=== PATIENT | male | born 1965 | race Caucasian/White ===

== ENCOUNTER 2018-05-24 00:38 | Observation (INO) ==
[2018-05-24] MEDS ORDERED: ASPIRIN CHEW 81 MG TABLET PO STA (01:02)
[2018-05-24] MEDS ORDERED: FAMOTIDINE 20 MG/2 ML VIAL IV STA (01:02)
[2018-05-24] MEDS ORDERED: NITROGLYCERIN SL 0.4 MG TABLET SL STA (01:02)
[2018-05-24 01:21] LABS: Mean Corpuscular Volume 82.1 FL (87-102); Red Cell Distribution Width 11.8 % (9.3-17.3)
[2018-05-24 01:39] LABS: Basophils # 0.1 10*3/uL (0.0-0.2); Basophils % 0.7 % (0.0-0.8); Eosinophils # 0.3 10*3/uL (0.0-0.87); Hematocrit 45.9 VOL% (42.0-52.0); Hemoglobin 16.9 GM/DL (14.0-18.0); Immature Granulocytes % 0.3 %; Immature Granulocytes Absolute 0.03 #; Lymphocytes # 2.7 10*3/uL (1.4-4.0); Lymphocytes % 26.3 % (21.2-54.2); Mean Corpuscular HGB Conc 36.8 GM/DL (32-36); Mean Corpuscular Hemoglobin 30 PG (27-34); Mean Platelet Volume 10.6 FL (9.6-12.0); Monocytes % 9.8 % (1.7-12.7); Neutrophils # 6.1 10*3/uL (1.4-7.4); Neutrophils % 59.9 % (38.7-73.9); Platelet Count 197 T/CUMM (130-400); Red Blood Count 5.59 MC/CUMM (3.8-5.5); White Blood Count 10.1 T/CUMM (4-12)
[2018-05-24 01:51] LABS: Bilirubin,Total 1.3 MG/DL (0.2-1.0); Calcium 9.2 MG/DL (8.5-10.1); Osmolality,Calculated 281.4 MOS/KG (273-304); Potassium 3.1 MMOL/L (3.5-5.1); Total Protein 7.5 G/DL (6.4-8.3)
[2018-05-24] MEDS ORDERED: MECLIZINE 25 MG TABLET PO STA (02:07)
[2018-05-24] MEDS ORDERED: ACETAMINOPHEN 325 MG TABLET PO PRN (03:34)
[2018-05-24] MEDS ORDERED: ONDANSETRON 4 MG/2 ML VIAL IV PRN ×2 (03:34→03:59)
[2018-05-24] MEDS ORDERED: MORPHINE 4 MG/1 ML VIAL IV PRN (03:59)
[2018-05-24] MEDS ORDERED: MAGNESIUM SULF RIDER 2 GM in PREMIX 1 EACH IV PRN (03:59)
[2018-05-24] MEDS ORDERED: POTASSIUM CHLORIDE 20 MEQ TABLET PO PRN ×2 (03:59)
[2018-05-24] MEDS ORDERED: INSULIN LISPRO 100 UNIT/ML SUBCUT ONE (03:59)
[2018-05-24] MEDS ORDERED: NITROGLYCERIN SL 0.4 MG TABLET SL PRN (03:59)
[2018-05-24] MEDS ORDERED: MAGNESIUM SULF RIDER 4 GM in PREMIX 1 EACH IV PRN (03:59)
[2018-05-24] MEDS: SODIUM CHLORIDE 0.9% 1,000 ML IV SCH ×2 (04:52→13:54)
[2018-05-24] MEDS: INSULIN LISPRO 100 UNIT/ML SUBCUT SCH ×3 (05:41→16:51)
[2018-05-24 06:58] LABS: Albumin 3.6 G/DL (3.4-5.0); Bilirubin,Total 1.5 MG/DL (0.2-1.0); Calcium 8.6 MG/DL (8.5-10.1); Osmolality,Calculated 276.5 MOS/KG (273-304); Potassium 3.3 MMOL/L (3.5-5.1); Total Protein 6.9 G/DL (6.4-8.3)
[2018-05-24 07:02] LABS: Risk Ratio 3.64; Thyroid Stimulating Hormone 6.05 uIU/ml (0.358-3.74); VLDL CHOLESTEROL 26.8 MG/DL
[2018-05-24 07:12] LABS: Basophils # 0.1 10*3/uL (0.0-0.2); Basophils % 0.8 % (0.0-0.8); Eosinophils # 0.4 10*3/uL (0.0-0.87); Eosinophils % 3.7 % (0.00-10.9); Hematocrit 43.7 VOL% (42.0-52.0); Hemoglobin 15.6 GM/DL (14.0-18.0); Immature Granulocytes % 0.3 %; Immature Granulocytes Absolute 0.03 #; Lymphocytes # 3.3 10*3/uL (1.4-4.0); Lymphocytes % 33.5 % (21.2-54.2); Mean Corpuscular HGB Conc 35.7 GM/DL (32-36); Mean Corpuscular Hemoglobin 30 PG (27-34); Mean Corpuscular Volume 83.4 FL (87-102); Mean Platelet Volume 10.6 FL (9.6-12.0); Monocytes # 0.9 10*3/uL (0.11-0.8); Monocytes % 9.1 % (1.7-12.7); Neutrophils # 5.1 10*3/uL (1.4-7.4); Neutrophils % 52.6 % (38.7-73.9); Platelet Count 173 T/CUMM (130-400); Red Blood Count 5.24 MC/CUMM (3.8-5.5); Red Cell Distribution Width 11.8 % (9.3-17.3); White Blood Count 9.8 T/CUMM (4-12)
[2018-05-24] MEDS ORDERED: ENOXAPARIN 40 MG/0.4 ML SYRINGE ONE (07:27)
[2018-05-24] MEDS ORDERED: PANTOPRAZOLE 40 MG TABLET PO SCH ×2 (09:00)
[2018-05-24] MEDS ORDERED: DOCUSATE SODIUM 100 MG CAPSULE PO SCH (09:00)
[2018-05-24] MEDS ORDERED: ASPIRIN EC 81 MG TABLET PO SCH (09:00)
[2018-05-24] MEDS ORDERED: ENOXAPARIN 40 MG/0.4 ML SYRINGE SUBCUT SCH (09:00)
[2018-05-24] MEDS ORDERED: ASPIRIN EC 325 MG TABLET PO SCH (09:00)
[2018-05-24 16:51] VITALS: BP 103/60
[2018-05-24] MEDS ORDERED: ROSUVASTATIN 20 MG TABLET PO SCH (21:00)
== END 2018-05-24 18:20 | disposition home or self-care (01) ==
LOC: N.ED 00:38 → N.EDINP 00:38 → N.TELEN 03:53

== ENCOUNTER 2018-10-26 23:58 | Observation (INO) ==
[2018-10-27] MEDS ORDERED: ONDANSETRON 4 MG/2 ML VIAL IV STA (00:26)
[2018-10-27 00:45] LABS: Basophils # 0.1 10*3/uL (0.0-0.2); Basophils % 0.9 % (0.0-0.8); Eosinophils # 0.7 10*3/uL (0.0-0.87); Eosinophils % 7.5 % (0.00-10.9); Hematocrit 46.7 VOL% (42.0-52.0); Immature Granulocytes % 0.8 %; Immature Granulocytes Absolute 0.07 #; Mean Corpuscular HGB Conc 34.3 GM/DL (32-36); Mean Corpuscular Hemoglobin 29 PG (27-34); Mean Corpuscular Volume 84.9 FL (87-102); Mean Platelet Volume 10.7 FL (9.6-12.0); Monocytes # 0.7 10*3/uL (0.11-0.8); Monocytes % 8.2 % (1.7-12.7); Neutrophils # 4.3 10*3/uL (1.4-7.4); Neutrophils % 48.6 % (38.7-73.9); Platelet Count 193 T/CUMM (130-400); Red Cell Distribution Width 12.4 % (9.3-17.3); White Blood Count 8.8 T/CUMM (4-12)
[2018-10-27 00:48] LABS: PT Patient Result 10.9 SECS; Partial Thromboplastin Time 27.6 SECS (0-40)
[2018-10-27 00:58] LABS: Calcium 8.8 MG/DL (8.5-10.1); Osmolality,Calculated 284.4 MOS/KG (273-304); Potassium 3.9 MMOL/L (3.5-5.1); Total Protein 7.4 G/DL (6.4-8.3)
[2018-10-27 01:00] LABS: Troponin I < 0.015 NG/ML (0.00-0.045)
[2018-10-27] MEDS ORDERED: BISACODYL 5 MG TABLET PO PRN (01:20)
[2018-10-27] MEDS ORDERED: ONDANSETRON 4 MG/2 ML VIAL IV PRN (01:20)
[2018-10-27] MEDS ORDERED: NICOTINE 21 MG/24 HR PATCH TRANSDERM PRN (01:20)
[2018-10-27] MEDS ORDERED: diphenhydrAMINE CAP 25 MG CAPSULE PO PRN (01:20)
[2018-10-27] MEDS ORDERED: ACETAMINOPHEN 325 MG TABLET PO PRN (01:20)
[2018-10-27 01:22] LABS: Barbiturates Screen,Urine Negative (Negative); Benzodiazepines Screen,Urine Negative (Negative); Cannabinoid Screen,Urine Positive (Negative); Opiate Screen,Urine Negative (Negative); Phencyclidine Screen,Urine Negative (Negative)
[2018-10-27 01:23] LABS: Apearance,Urine CLEAR (Clear); Bilirubin,Urine Negative (Negative); Blood, Urine Negative (Negative); Glucose,Urine (UA) 50 mg/dL (Negative); Ketones,Urine Negative (Negative); Mucus,Urine Occasional /LPF (Occasional); Nitrite,Urine Negative (Negative); Protein,Urine Negative; RBC,Urine <1 /HPF (0-4); Sperm,Urine Occasional /HPF (Negative); Urine Color Straw (Yellow); Urine Specific Gravity 1.011 (1.001-1.035); Urine Urobilinogen < 2.0 EU/DL (0.2-1.0); WBC,Urine <1 /HPF (0-6)
[2018-10-27] MEDS ORDERED: DEXTROSE 50% 25 GM/50 ML SYRINGE IV PRN (01:56)
[2018-10-27] MEDS ORDERED: GLUCAGON 1 MG VIAL IM PRN (01:56)
[2018-10-27 05:03] LABS: Risk Ratio 2.92
[2018-10-27] MEDS ORDERED: ASPIRIN 325 MG TABLET PO SCH (09:00)
[2018-10-27] MEDS ORDERED: PANTOPRAZOLE 40 MG TABLET PO SCH (09:00)
[2018-10-27] MEDS: INSULIN REGULAR 100 UNIT/ML SUBCUT SCH ×2 (10:03→12:24)
[2018-10-27 12:24] VITALS: BP 123/79
[2018-10-27] MEDS ORDERED: SIMVASTATIN 20 MG TABLET PO SCH (21:00)
[2018-10-28] MEDS ORDERED: LISINOPRIL 5 MG TABLET PO SCH (09:00)
== END 2018-10-27 15:00 | disposition home or self-care (01) ==
LOC: N.ED 23:58 → N.EDINP 23:58 → SUATTDRO 10-27 01:20 → N.4E 10-27 02:03
PROVIDERS: ADMIT Family Medicine; ATTEND Emergency Medicine

== ENCOUNTER 2022-07-19 09:28 | Observation (INO) ==
[2022-07-19] MEDS ORDERED: MORPHINE 2 MG/1 ML SYRINGE IV STA (10:56)
[2022-07-19] MEDS ORDERED: ONDANSETRON 4 MG/2 ML VIAL IV STA (10:57)
[2022-07-19 11:10] LABS: Basophils # 0.1 10*3/uL (0.0-0.2); Basophils % 1.2 % (0.0-0.8); Eosinophils # 0.4 10*3/uL (0.0-0.87); Eosinophils % 5.7 % (0.00-10.9); Hematocrit 50.4 VOL% (42.0-52.0); Hemoglobin 17.5 GM/DL (14.0-18.0); Immature Granulocytes % 0.8 %; Immature Granulocytes Absolute 0.06 #; Lymphocytes # 2.6 10*3/uL (1.4-4.0); Lymphocytes % 33.2 % (21.2-54.2); Mean Corpuscular HGB Conc 34.7 GM/DL (32-36); Mean Corpuscular Volume 84.3 FL (87-102); Mean Platelet Volume 10.2 FL (9.6-12.0); Monocytes # 0.7 10*3/uL (0.11-0.8); Monocytes % 8.6 % (1.7-12.7); Neutrophils % 50.5 % (38.7-73.9); Platelet Count 188 T/CUMM (130-400); Red Blood Count 5.98 MC/CUMM (3.8-5.5); Red Cell Distribution Width 12.2 % (9.3-17.3); White Blood Count 7.8 T/CUMM (4-12)
[2022-07-19 11:29] LABS: Albumin 3.6 G/DL (3.4-5.0); Bilirubin,Total 0.5 MG/DL (0.20-1.00); Osmolality,Calculated 281.1 MOS/KG (273-304); Potassium 4.2 MMOL/L (3.5-5.1); Total Protein 7.2 G/DL (6.4-8.2)
[2022-07-19] MEDS ORDERED: SODIUM CHLORIDE 0.9% 1,000 ML IV STA (12:31)
[2022-07-19] MEDS ORDERED: cefTRIAXone 1,000 MG in SODIUM CHLORIDE 0.9% 100 ML IV STA (12:31)
[2022-07-19] MEDS ORDERED: SODIUM CHLORIDE 0.9% 1,000 ML IV SCH (13:00)
[2022-07-19] MEDS ORDERED: fentaNYL 100 MCG/2 ML VIAL ONE (14:53)
[2022-07-19] MEDS ORDERED: LIDOCAINE 2% 5 ML VIAL ONE (14:53)
[2022-07-19] MEDS ORDERED: propofoL 200 MG/20 ML VIAL IV ONE (14:53)
[2022-07-19] MEDS ORDERED: MIDAZOLAM 2 MG/2 ML VIAL ONE (14:53)
[2022-07-19] MEDS ORDERED: SUCCINYLCHOLINE 200 MG/10 ML VIAL ONE (14:54)
[2022-07-19] MEDS ORDERED: ONDANSETRON 4 MG/2 ML VIAL ONE (15:01)
[2022-07-19] MEDS ORDERED: SEVOFLURANE 1 UNIT/15 MINUTE INH ONE ×2 (15:37→16:05)
[2022-07-19] MEDS ORDERED: PROMETHAZINE 25 MG/1 ML VIAL IM PRN ×3 (15:44→16:55)
[2022-07-19] MEDS ORDERED: GLUCAGON 1 MG VIAL IM PRN ×4 (15:44→16:55)
[2022-07-19] MEDS ORDERED: ONDANSETRON 4 MG/2 ML VIAL IV PRN ×4 (15:44→16:55)
[2022-07-19] MEDS ORDERED: DEXTROSE 50% 25 GM/50 ML VIAL IV PRN ×3 (15:44→16:55)
[2022-07-19] MEDS ORDERED: diphenhydrAMINE 50 MG/1 ML VIAL IV PRN ×3 (15:44→16:55)
[2022-07-19] MEDS ORDERED: traMADol 50 MG TABLET PO PRN ×3 (15:47→16:55)
[2022-07-19] MEDS ORDERED: ACETAMINOPHEN 325 MG TABLET PO SCH ×2 (16:00→22:00)
[2022-07-19] MEDS ORDERED: ePHEDrine 50 MG/ML VIAL ONE (16:02)
[2022-07-19] MEDS ORDERED: DEXAMETHASONE 4 MG/1 ML VIAL ONE (16:05)
[2022-07-19] MEDS ORDERED: HYDROmorphone 1 MG/1 ML SYRINGE IV PRN ×2 (16:06→16:36)
[2022-07-19] MEDS ORDERED: INSULIN REGULAR 100 UNIT/ML SUBCUT SCH ×2 (16:30)
[2022-07-19] MEDS ORDERED: DEXTROSE 10% 250 ML BAG IV PRN (16:33)
[2022-07-19] MEDS: SODIUM CHLORIDE 0.9% 1,000 ML IV SCH (16:43)
[2022-07-19] MEDS: INSULIN REGULAR 100 UNIT/ML SUBCUT SCH ×2 (17:29→22:43)
[2022-07-19] MEDS: SULFAMETHOX/TRIMETHOPRIM 800-160 MG TABLET PO SCH (20:31)
[2022-07-19] MEDS: DOCUSATE SODIUM 100 MG CAPSULE PO SCH (20:31)
[2022-07-19] MEDS ORDERED: SULFAMETHOX/TRIMETHOPRIM 800-160 MG TABLET PO SCH ×2 (21:00)
[2022-07-19] MEDS ORDERED: DOCUSATE SODIUM 100 MG CAPSULE PO SCH ×2 (21:00)
[2022-07-19] MEDS: ACETAMINOPHEN 325 MG TABLET PO SCH (22:43)
[2022-07-20] MEDS: ACETAMINOPHEN 325 MG TABLET PO SCH ×2 (04:45→12:25)
[2022-07-20] MEDS: SODIUM CHLORIDE 0.9% 1,000 ML IV SCH ×2 (04:45→13:23)
[2022-07-20] MEDS: SULFAMETHOX/TRIMETHOPRIM 800-160 MG TABLET PO SCH (12:25)
[2022-07-20] MEDS: DOCUSATE SODIUM 100 MG CAPSULE PO SCH (13:10)
[2022-07-20] MEDS: INSULIN REGULAR 100 UNIT/ML SUBCUT SCH ×2 (13:12→13:24)
[2022-07-20 18:16] VITALS: BP 104/71
== END 2022-07-20 14:45 | disposition home or self-care (01) ==
LOC: N.2W 09:28 → N.ED 09:28 → UNDODISOB 15:53 → N.ED 15:53
PROVIDERS: ADMIT Surgery; ATTEND Surgery